=== PATIENT | male | born 1940 | race Caucasian/White ===

== ENCOUNTER 2022-06-07 14:09 | Inpatient (IN) | payer MEDICARE, OTHER ==
[~2022-06-07] VITALS: Ht 162.6 cm; Wt 62.2 kg
[~2022-06-07 14:09] MED LIST: ADVAIR 250-501 EACH INH; CEFPODOXIME PR200 MG PO; CETIRIZINE HCL10 MG PO; IPRAT-ALBUT 0.5-3 ML INH; KENALOG OINT 0.15 GM TOP; LEVAQUIN TAB 5500 MG PO; MOBIC15 MG PO; PREDNISONE 20 M20 MG PO; TYLENOL 500 MG500 MG PO; ZITHROMAX TRI-500 MG PO
[2022-06-07 15:16] LABS: HEMOGLOBIN 13.7 gm/dl (14.0-17.5); RED BLOOD COUNT 4.4 M/UL (4.20-5.50); WHITE BLOOD COUNT 8.2 K/UL (4.5-11.0)
[2022-06-07 15:40] LABS: BUN/CREATININE RATIO 24 (0-10)
[2022-06-07 22:53] LABS: BUN/CREATININE RATIO 23 (0-10)
[2022-06-08 06:46] LABS: HEMOGLOBIN 14.3 gm/dl (14.0-17.5); RED BLOOD COUNT 4.68 M/UL (4.20-5.50)
[2022-06-08 06:50] LABS: WHITE BLOOD COUNT 3.1 K/UL (4.5-11.0)
[2022-06-08 08:45] LABS: BUN/CREATININE RATIO 21 (0-10)
[2022-06-08] MEDS ORDERED: BROVANA15 MCG/2 M INH (12:13)
[2022-06-08] MEDS ORDERED: CELECOXIB200 MG PO (12:15)
[2022-06-08] MEDS ORDERED: GABAPENTIN100 MG PO (12:18)
[2022-06-08] MEDS ORDERED: FEXOFENADINE H180 MG PO (12:22)
[2022-06-08] MEDS ORDERED: MONTELUKAST SOD10 MG PO (12:26)
[2022-06-08 14:23] LABS: BUN/CREATININE RATIO 29 (0-10)
[2022-06-08 20:36] LABS: BUN/CREATININE RATIO 33 (0-10)
[2022-06-09 04:09] LABS: HEMOGLOBIN 12.9 gm/dl (14.0-17.5)
[2022-06-09 04:16] LABS: RED BLOOD COUNT 4.11 M/UL (4.20-5.50); WHITE BLOOD COUNT 5.1 K/UL (4.5-11.0)
[2022-06-09 04:33] LABS: BUN/CREATININE RATIO 33 (0-10)
[2022-06-09 17:25] LABS: BUN/CREATININE RATIO 30 (0-10)
[2022-06-10 07:22] LABS: HEMOGLOBIN 13.6 gm/dl (14.0-17.5); RED BLOOD COUNT 4.44 M/UL (4.20-5.50); WHITE BLOOD COUNT 5.6 K/UL (4.5-11.0)
[2022-06-10 07:48] LABS: BUN/CREATININE RATIO 31 (0-10)
--- NOTE | 2022-06-10 18:35 | NUR ---
1700 02 Sat 94% on room air.
[2022-06-11 07:04] LABS: BUN/CREATININE RATIO 27 (0-10)
[2022-06-11] MEDS ORDERED: PROVENTIL HFA6.7 GM INH (08:20)
[2022-06-11] MEDS ORDERED: SODIUM CHLORIDE1 G1 PO (08:20)
[2022-06-11] MEDS ORDERED: ZITHROMAX250 MG PO (08:27)
[2022-06-11] MEDS ORDERED: OMNICEF 300 MG300 MG PO (08:27)
== END 2022-06-11 10:40 | disposition home or self-care (01) | DRG 177 ==
LOC: ER1 14:09 → CDU 16:05 → MED SURG 4 16:05
PROVIDERS: Emergency Medicine; Internal Medicine; Internal Medicine Nephrology; ADMIT Emergency Medicine
PROC: 8E0ZXY6 Isolation (ICD-10-PCS; principal; 2022-06-07)
PROC: XW033E5 Introduction of Remdesivir Anti-infective into Peripheral Vein, Percutaneous Approach, New Technology Group 5 (ICD-10-PCS; 2022-06-07)
PROC: 3E0333Z Introduction of Anti-inflammatory into Peripheral Vein, Percutaneous Approach (ICD-10-PCS; 2022-06-07)
DX: U07.1 COVID-19 (principal); J12.82 Pneumonia due to coronavirus disease 2019; J96.21 Acute and chronic respiratory failure with hypoxia; J15.9 Unspecified bacterial pneumonia; E87.2 Acidosis; E22.2 Syndrome of inappropriate secretion of antidiuretic hormone; R91.8 Other nonspecific abnormal finding of lung field; D72.819 Decreased white blood cell count, unspecified; J43.9 Emphysema, unspecified; Z99.81 Dependence on supplemental oxygen; Z98.890 Other specified postprocedural states; Z79.899 Other long term (current) drug therapy
CPT/HCPCS: 36415; 36600; 71045; 71275; 80048; 80053; 82550; 82553; 82803; 82962; 83605; 83735; 83880; 84132; 84295; 84439; 84443; 84484; 85025; 85027; 85379; 86140; 87040; 93005; 94640; 94664; 94760; 96374; 96375; 99285; J0248; J0456; J0696; J1100; J1650; J7030; J7050; J7131; Q9967; U0002